=== PATIENT | male | born 2005 | race African-American/Black ===

== ENCOUNTER 2024-05-10 22:35 | Emergency (ER) | payer SELFPAY ==
[~2024-05-10] VITALS: Ht 172.7 cm; Wt 57.0 kg
[~2024-05-10 22:35] MED LIST: MOTRIN; NYQUI1 OR; TYLENOL OR
[2024-05-10] MEDS ORDERED: ACETAMINOPHEN 500 MG TAB PO ONE (23:05)
[2024-05-10] MEDS ORDERED: Diph, Acellular Pertussis, Tet 0.5 ML/VIAL (Tdap) SDV IM ONE (23:05)
[2024-05-10] MEDS ORDERED: POVIDONE IODINE 0.5 OZ/BTL TOP ONE (23:05)
[2024-05-10] MEDS ORDERED: NEOMYCIN-BACITRACIN-POLYMYXIN 0.5 GM/PAK PAK TOP ONE (23:05)
[2024-05-10] MEDS ORDERED: IBUPROFEN 600 MG/TAB PO ONE (23:05)
[2024-05-10 23:46] VITALS: BP 125/76
== END 2024-05-10 23:47 | disposition home or self-care (01) | DRG 605 ==
LOC: ED 22:35
DX: S00.81XA Abrasion of other part of head, initial encounter (principal); S00.212A Abrasion of left eyelid and periocular area, initial encounter; V28.01XA Electric (assisted) bicycle driver injured in noncollision transport accident in nontraffic accident, initial encounter
CPT/HCPCS: 90715